=== PATIENT | female | born 1940 | race Caucasian/White ===

== ENCOUNTER 2021-07-25 01:02 | Inpatient (IN) | payer MEDICAID ==
[~2021-07-25] VITALS: Ht 157.5 cm; Wt 66.7 kg
[2021-07-25] MEDS ORDERED: PROPOFOL 10MG/ML 100ML 100 ML IV ONE (01:30)
[2021-07-25] MEDS ORDERED: FENTANYL CITRATE/PF 50MCG/ML 2ML VIAL IV ONE (01:30)
[2021-07-25 01:43] LABS: BASOPHILS % 0.7 % (0.0-2.0); EOSINOPHILS % 10.1 % (0.0-5.0); HEMATOCRIT. 42.6 % (36.0-48.0); HEMOGLOBIN. 13.3 g/dL (12.0-16.0); LYMPHOCYTES % 53.8 % (20.0-50.0); MEAN CORPUSCULAR HEMOGLOBIN 28.5 pg (28.0-32.0); MEAN CORPUSCULAR VOLUME 91.3 fL (81.0-99.0); MONOCYTES % 5.6 % (2.0-8.0); NEUTROPHILS % 29.8 % (40.0-76.0); PLATELET 280 x1000/uL (130-400); RED BLOOD CELL COUNT 4.66 mill/uL (4.2-5.4); RED CELL DISTRIBUTION WIDTH 15.5 % (11.6-14.6)
[2021-07-25 02:25] LABS: BG BASE EXCESS -12.6 mmol/L (-2.0-2.0); BG CARBOXYHEMOGLOBIN 0.3 % (0.5-1.5); BG DEOXYHEMOGLOBIN 0.3 % (0.0-5.0); BG FRACTION INSPIRED OXYGEN 100; BG HCO3 ACT 15.4 mmol/L (22.0-26.0); BG METHEMOGLOBIN 0.5 % (0.0-1.5); BG OXYGEN SATURATION 99.7 % (92.0-98.5); BG OXYHEMOGLOBIN 98.9 % (94.0-97.0); BG PCO2 42.9 mmHg (35.0-45.0); BG PH 7.173 (7.350-7.450); BG PO2 334.6 mmHg (75.0-100.0); BG SAMPLE SITE RIGHT RADIAL; BG TOTAL HEMOGLOBIN 14.4 g/dL (12.0-18.0); BG VENT MODE VENT - AC
[2021-07-25] MEDS ORDERED: DEXAMETHASONE 10 MG/ML VIAL IV NR (02:30)
[2021-07-25] MEDS ORDERED: FUROSEMIDE 40MG/4ML VIAL IVP NR (02:30)
[2021-07-25] MEDS ORDERED: CEFTRIAXONE 1 G PREMIX 50 ML IV NR (02:30)
[2021-07-25] MEDS ORDERED: AZITHROMYCIN 500 MG in DEXT 5% WATER 250 ML IV SCH (02:30)
[2021-07-25] MEDS ORDERED: AZITHROMYCIN 500MG/250ML 250 ML IV NR (03:00)
[2021-07-25 03:20] LABS: CHLORIDE 105 mEq/L (98-107)
[2021-07-25] MEDS ORDERED: MIDAZOLAM HCL 100 MG in DEXT 5% WATER 80 ML IV ONE (03:30)
[2021-07-25] MEDS ORDERED: MIDAZOLAM 100MG/100ML PREMIX IV PRN ×2 (03:45→22:00)
[2021-07-25] MEDS ORDERED: SODIUM CHLORIDE 0.9% 500 ML IV NR (03:45)
[2021-07-25] MEDS ORDERED: NOREPINEPHRINE 8 MG in DEXTROSE 5% WATER 250 ML IV PRN (04:00)
[2021-07-25] MEDS ORDERED: NOREPINEPHRINE 8MG/250ML PMX 250 ML IV SCH (04:00)
[2021-07-25 06:03] LABS: *AMPHETAMINES SCREEN URINE NEGATIVE (NEGATIVE); *BARBITURATES SCREEN URINE NEGATIVE (NEGATIVE); *BENZODIAZEPINES SCREEN URINE NEGATIVE (NEGATIVE); *COCAINE SCREEN URINE NEGATIVE (NEGATIVE)
[2021-07-25 06:04] LABS: CANNABINOID URINE SCREEN NEGATIVE (NEGATIVE); METHADONE URINE SCREEN NEGATIVE (NEGATIVE); OPIATES URINE SCREEN NEGATIVE (NEGATIVE); PHENCYCLIDINE URINE SCREEN NEGATIVE (NEGATIVE)
[2021-07-25] MEDS ORDERED: IOHEXOL-350 100 ML BOTTLE ONE (06:55)
[2021-07-25 07:47] LABS: BG BASE EXCESS -2.3 mmol/L (-2.0-2.0); BG CARBOXYHEMOGLOBIN 0.1 % (0.5-1.5); BG DEOXYHEMOGLOBIN 0.8 % (0.0-5.0); BG HCO3 ACT 19.8 mmol/L (22.0-26.0); BG METHEMOGLOBIN 0.3 % (0.0-1.5); BG OXYGEN SATURATION 99.2 % (92.0-98.5); BG OXYHEMOGLOBIN 98.8 % (94.0-97.0); BG PCO2 26.8 mmHg (35.0-45.0); BG PH 7.486 (7.350-7.450); BG PO2 177.6 mmHg (75.0-100.0); BG SAMPLE SITE RIGHT RADIAL; BG TOTAL HEMOGLOBIN 12.7 g/dL (12.0-18.0); BG VENT MODE VENT - AC
[2021-07-25] MEDS ORDERED: ETOMIDATE 2MG/ML 10ML VIAL IV ONE (08:54)
[2021-07-25] MEDS ORDERED: SUCCINYLCHOLINE CHLORIDE 200MG/10ML IV ONE (08:54)
[2021-07-25] MEDS ORDERED: DOCUSATE SODIUM 100MG CAPSULE PO PRN (12:00)
[2021-07-25] MEDS ORDERED: CLONIDINE 0.1MG TABLET PO PRN (12:00)
[2021-07-25] MEDS ORDERED: NA PHOS,M-B/NA PHOS,DI-BA ENEMA 118ML PR PRN (12:00)
[2021-07-25] MEDS ORDERED: IPRATROPIUM/ALBUTEROL 0.5-3(2.5)MG/3ML NEB NEB PRN (12:00)
[2021-07-25] MEDS ORDERED: LORAZEPAM 2MG/ML CPJ IV PRN (12:00)
[2021-07-25] MEDS ORDERED: NALOXONE HCL 0.4MG/ML VIAL IV PRN (12:00)
[2021-07-25] MEDS ORDERED: HYDROCODONE/ACETAMINOPHEN 5/325MG TABLET PO PRN (12:00)
[2021-07-25] MEDS ORDERED: ENOXAPARIN 30MG/0.3ML SYR SUBCUT SCH (12:00)
[2021-07-25] MEDS ORDERED: MORPHINE SULFATE 2 MG/ML CPJ (NOT FOR IM USE) IV PRN (12:00)
[2021-07-25] MEDS ORDERED: MAGNESIUM/ALUMINUM HYDROXIDE/SIMETHICONE 30ML UDC PO PRN (12:00)
[2021-07-25] MEDS: PIPERACILLIN/TAZOBACTAM 3.375 G in DEXTROSE 5% WATER 50 ML IV SCH ×2 (13:25→20:00)
[2021-07-25] MEDS: DEXT 5%/0.45% NACL 1000ML 1,000 ML IV SCH (13:25)
[2021-07-25 17:16] LABS: CLARITY URINE CLEAR (CLEAR); COLOR URINE YELLOW (YELLOW); KETONES URINE NEGATIVE (NEGATIVE); LEUKOCYTE ESTERASE URINE NEGATIVE (NEGATIVE); NITRITE URINE NEGATIVE (NEGATIVE); OCCULT BLOOD URINE NEGATIVE (NEGATIVE); PH URINE 6.5 (4.5-8.0); PROTEIN URINE NEGATIVE (NEGATIVE); SPECIFIC GRAVITY URINE 1.023 (1.005-1.030); UROBILINOGEN URINE 0.2 E.U./dL (0.2-1.0)
[2021-07-25 17:45] LABS: PHOSPHORUS 2.4 mg/dL (2.5-4.9)
[2021-07-26] VITALS (18 sets, daily range): BP systolic 132–169; BP diastolic 59–90
[2021-07-26 05:22] LABS: CHLORIDE 103 mEq/L (98-107)
[2021-07-26] MEDS: PIPERACILLIN/TAZOBACTAM 3.375 G in DEXTROSE 5% WATER 50 ML IV SCH ×3 (05:44→22:12)
[2021-07-26] MEDS: ASPIRIN 81MG EC TABLET PO SCH (09:00)
[2021-07-26] MEDS: ENOXAPARIN 80MG/0.8ML SYR SUBCUT SCH (11:01)
[2021-07-26 11:07] LABS: PROTHROMBIN TIME 10.6 sec (9.6-11.0)
[2021-07-26 12:27] LABS: BG BASE EXCESS -2.1 mmol/L (-2.0-2.0); BG CARBOXYHEMOGLOBIN 0.3 % (0.5-1.5); BG DEOXYHEMOGLOBIN 0.7 % (0.0-5.0); BG FRACTION INSPIRED OXYGEN 60; BG HCO3 ACT 17.9 mmol/L (22.0-26.0); BG METHEMOGLOBIN 0.3 % (0.0-1.5); BG OXYGEN SATURATION 99.3 % (92.0-98.5); BG OXYHEMOGLOBIN 98.7 % (94.0-97.0); BG PCO2 19.8 mmHg (35.0-45.0); BG PH 7.573 (7.350-7.450); BG PO2 230.3 mmHg (75.0-100.0); BG SAMPLE SITE LEFT RADIAL; BG TOTAL HEMOGLOBIN 12.6 g/dL (12.0-18.0); BG VENT MODE VENT - AC
[2021-07-26] MEDS: DEXT 5%/0.45% NACL 1000ML 1,000 ML IV SCH (15:15)
[2021-07-26] MEDS ORDERED: PROPOFOL 10MG/ML 100ML 100 ML IV PRN (15:45)
[2021-07-26] MEDS ORDERED: IPRATROPIUM/ALBUTEROL 0.5-3(2.5)MG/3ML NEB HHN PRN (15:45)
[2021-07-26] MEDS: DOCUSATE SODIUM SUGAR FREE 100MG/10ML UDC NG SCH (17:33)
[2021-07-26] MEDS: MIDAZOLAM HCL 100 MG in SODIUM CHLORIDE 0.9% 80 ML IV PRN (18:03)
[2021-07-26] MEDS: IPRATROPIUM/ALBUTEROL 0.5-3(2.5)MG/3ML NEB HHN SCH (20:17)
[2021-07-27] VITALS (35 sets, daily range): BP systolic 121–179; BP diastolic 49–94
[2021-07-27] MEDS: IPRATROPIUM/ALBUTEROL 0.5-3(2.5)MG/3ML NEB HHN SCH ×6 (00:09→20:55)
[2021-07-27 05:23] LABS: BASOPHILS % 0.4 % (0.0-2.0); EOSINOPHILS % 0.4 % (0.0-5.0); HEMATOCRIT. 34.3 % (36.0-48.0); HEMOGLOBIN. 11.5 g/dL (12.0-16.0); LYMPHOCYTES % 21.5 % (20.0-50.0); MEAN CORPUSCULAR HEMOGLOBIN 28.8 pg (28.0-32.0); MEAN CORPUSCULAR VOLUME 85.7 fL (81.0-99.0); MEAN PLATELET VOLUME 8.5 fl (7.4-10.4); MONOCYTES % 9.4 % (2.0-8.0); NEUTROPHILS % 68.3 % (40.0-76.0); PLATELET 148 x1000/uL (130-400)
[2021-07-27] MEDS: PIPERACILLIN/TAZOBACTAM 3.375 G in DEXTROSE 5% WATER 50 ML IV SCH ×3 (07:02→21:04)
[2021-07-27 08:53] LABS: BG BASE EXCESS -3.2 mmol/L (-2.0-2.0); BG CARBOXYHEMOGLOBIN 0.3 % (0.5-1.5); BG DEOXYHEMOGLOBIN 1.6 % (0.0-5.0); BG FRACTION INSPIRED OXYGEN 35; BG HCO3 ACT 18.5 mmol/L (22.0-26.0); BG METHEMOGLOBIN 0.3 % (0.0-1.5); BG OXYGEN SATURATION 98.4 % (92.0-98.5); BG OXYHEMOGLOBIN 97.8 % (94.0-97.0); BG PH 7.505 (7.350-7.450); BG PO2 126.6 mmHg (75.0-100.0); BG SAMPLE SITE RIGHT RADIAL; BG TOTAL HEMOGLOBIN 11.1 g/dL (12.0-18.0); BG VENT MODE VENT - AC
[2021-07-27] MEDS: DOCUSATE SODIUM SUGAR FREE 100MG/10ML UDC NG SCH (08:56)
[2021-07-27] MEDS: ENOXAPARIN 80MG/0.8ML SYR SUBCUT SCH (09:14)
[2021-07-27] MEDS: ASPIRIN 81MG EC TABLET PO SCH (09:14)
[2021-07-27] MEDS ORDERED: POTASSIUM CHLORIDE 20MEQ/PACKET PO NR (10:30)
[2021-07-27] MEDS: FENTANYL CITRATE/PF 2,500 MCG in SODIUM CHLORIDE 0.9% 200 ML IV PRN (11:47)
[2021-07-27] MEDS: DEXT 5%/0.45% NACL 1000ML 1,000 ML IV SCH (11:47)
[2021-07-28] VITALS (51 sets, daily range): BP systolic 106–192; BP diastolic 53–102
[2021-07-28] MEDS: MIDAZOLAM HCL 100 MG in SODIUM CHLORIDE 0.9% 80 ML IV PRN (00:27)
[2021-07-28] MEDS: IPRATROPIUM/ALBUTEROL 0.5-3(2.5)MG/3ML NEB HHN SCH ×6 (00:37→20:41)
[2021-07-28 06:12] LABS: BASOPHILS % 0.2 % (0.0-2.0); EOSINOPHILS % 2.4 % (0.0-5.0); HEMATOCRIT. 33.9 % (36.0-48.0); HEMOGLOBIN. 11.4 g/dL (12.0-16.0); LYMPHOCYTES % 11.6 % (20.0-50.0); MEAN CORPUSCULAR HEMOGLOBIN 28.6 pg (28.0-32.0); MEAN CORPUSCULAR VOLUME 84.8 fL (81.0-99.0); MEAN PLATELET VOLUME 9.2 fl (7.4-10.4); MONOCYTES % 6.1 % (2.0-8.0); NEUTROPHILS % 79.7 % (40.0-76.0); PLATELET 188 x1000/uL (130-400); RED CELL DISTRIBUTION WIDTH 14.8 % (11.6-14.6)
[2021-07-28 06:40] LABS: PHOSPHORUS 4.2 mg/dL (2.5-4.9)
[2021-07-28] MEDS: PIPERACILLIN/TAZOBACTAM 3.375 G in DEXTROSE 5% WATER 50 ML IV SCH ×3 (06:51→21:49)
[2021-07-28] MEDS: DOCUSATE SODIUM SUGAR FREE 100MG/10ML UDC NG SCH (09:00)
[2021-07-28 09:09] LABS: BG BASE EXCESS -5.5 mmol/L (-2.0-2.0); BG FRACTION INSPIRED OXYGEN 35; BG HCO3 ACT 18.6 mmol/L (22.0-26.0); BG METHEMOGLOBIN 0.3 % (0.0-1.5); BG OXYHEMOGLOBIN 97.7 % (94.0-97.0); BG PCO2 32.2 mmHg (35.0-45.0); BG PO2 104.4 mmHg (75.0-100.0); BG SAMPLE SITE RIGHT RADIAL; BG TOTAL HEMOGLOBIN 12.8 g/dL (12.0-18.0); BG VENT MODE VENT - AC
[2021-07-28] MEDS: ASPIRIN 81MG EC TABLET PO SCH (09:37)
[2021-07-28] MEDS: ENOXAPARIN 60MG/0.6ML SYR SUBCUT SCH (09:37)
[2021-07-28] MEDS: DEXT 5%/0.45% NACL 1000ML 1,000 ML IV SCH ×2 (12:45→20:45)
[2021-07-28] MEDS: FENTANYL CITRATE/PF 2,500 MCG in SODIUM CHLORIDE 0.9% 200 ML IV PRN (14:19)
[2021-07-29] VITALS (48 sets, daily range): BP systolic 112–184; BP diastolic 54–89
[2021-07-29] MEDS: IPRATROPIUM/ALBUTEROL 0.5-3(2.5)MG/3ML NEB HHN SCH ×5 (00:33→20:38)
[2021-07-29 05:28] LABS: HEMOGLOBIN. 10.8 g/dL (12.0-16.0); MEAN CORPUSCULAR HEMOGLOBIN 28.8 pg (28.0-32.0); MEAN CORPUSCULAR VOLUME 85.1 fL (81.0-99.0); MEAN PLATELET VOLUME 8.7 fl (7.4-10.4); PLATELET 200 x1000/uL (130-400); RED BLOOD CELL COUNT 3.76 mill/uL (4.2-5.4); RED CELL DISTRIBUTION WIDTH 14.8 % (11.6-14.6)
[2021-07-29] MEDS: PIPERACILLIN/TAZOBACTAM 3.375 G in DEXTROSE 5% WATER 50 ML IV SCH ×3 (06:01→21:25)
[2021-07-29 07:47] LABS: PLATELET ESTIMATE NORMAL
[2021-07-29] MEDS: DOCUSATE SODIUM SUGAR FREE 100MG/10ML UDC NG SCH (09:00)
[2021-07-29] MEDS: ENOXAPARIN 60MG/0.6ML SYR SUBCUT SCH (09:15)
[2021-07-29] MEDS: ASPIRIN 81MG EC TABLET PO SCH (09:15)
[2021-07-29 09:38] LABS: BG BASE EXCESS -5.9 mmol/L (-2.0-2.0); BG CARBOXYHEMOGLOBIN 0.3 % (0.5-1.5); BG DEOXYHEMOGLOBIN 7.9 % (0.0-5.0); BG FRACTION INSPIRED OXYGEN 35; BG HCO3 ACT 20.3 mmol/L (22.0-26.0); BG METHEMOGLOBIN 0.3 % (0.0-1.5); BG OXYGEN SATURATION 92.1 % (92.0-98.5); BG OXYHEMOGLOBIN 91.5 % (94.0-97.0); BG PCO2 42.6 mmHg (35.0-45.0); BG PH 7.296 (7.350-7.450); BG PO2 66.7 mmHg (75.0-100.0); BG SAMPLE SITE RH; BG TOTAL HEMOGLOBIN 11.8 g/dL (12.0-18.0); BG TOTAL RESPIRATORY RATE 23 b/min; BG VENT MODE VENT - SIMV
[2021-07-29] MEDS: FENTANYL CITRATE/PF 2,500 MCG in SODIUM CHLORIDE 0.9% 200 ML IV PRN (14:32)
[2021-07-29] MEDS: HYDRALAZINE HCL 50MG TABLET NG SCH ×2 (14:43→21:34)
[2021-07-30] VITALS (47 sets, daily range): BP systolic 113–186; BP diastolic 48–101
[2021-07-30] MEDS: IPRATROPIUM/ALBUTEROL 0.5-3(2.5)MG/3ML NEB HHN SCH ×6 (00:37→20:00)
[2021-07-30] MEDS: PIPERACILLIN/TAZOBACTAM 3.375 G in DEXTROSE 5% WATER 50 ML IV SCH ×3 (05:35→22:00)
[2021-07-30] MEDS: HYDRALAZINE HCL 50MG TABLET NG SCH ×3 (05:35→22:00)
[2021-07-30 08:44] LABS: BG BASE EXCESS -3.3 mmol/L (-2.0-2.0); BG CARBOXYHEMOGLOBIN 0.1 % (0.5-1.5); BG DEOXYHEMOGLOBIN 1.7 % (0.0-5.0); BG HCO3 ACT 20.4 mmol/L (22.0-26.0); BG METHEMOGLOBIN 0.2 % (0.0-1.5); BG OXYGEN SATURATION 98.3 % (92.0-98.5); BG PCO2 32.2 mmHg (35.0-45.0); BG PO2 110.5 mmHg (75.0-100.0); BG SAMPLE SITE RIGHT RADIAL; BG TOTAL HEMOGLOBIN 11.2 g/dL (12.0-18.0); BG VENT MODE VENT - SIMV
[2021-07-30] MEDS: DOCUSATE SODIUM SUGAR FREE 100MG/10ML UDC NG SCH (09:14)
[2021-07-30] MEDS: ASPIRIN 81MG EC TABLET PO SCH (09:14)
[2021-07-30] MEDS: ENOXAPARIN 30MG/0.3ML SYR SUBCUT SCH (09:15)
[2021-07-30] MEDS: FENTANYL CITRATE/PF 2,500 MCG in SODIUM CHLORIDE 0.9% 200 ML IV PRN (14:29)
[2021-07-30] MEDS: ONDANSETRON HCL 4MG/2ML INJ IV PRN (16:52)
[2021-07-31] VITALS (80 sets, daily range): BP systolic 108–171; BP diastolic 53–118
[2021-07-31] MEDS: DIPHENHYDRAMINE 50MG/ML VIAL IV PRN ×3 (00:11→22:11)
[2021-07-31] MEDS: ONDANSETRON HCL 4MG/2ML INJ IV PRN ×3 (00:12→22:10)
[2021-07-31] MEDS: ACETAMINOPHEN 325MG TABLET PO PRN ×2 (00:14→22:10)
[2021-07-31] MEDS: GUAIFENESIN 200MG/10ML SUGAR FREE UDC PO PRN ×3 (00:14→22:10)
[2021-07-31] MEDS: IPRATROPIUM/ALBUTEROL 0.5-3(2.5)MG/3ML NEB HHN SCH ×7 (00:44→23:48)
[2021-07-31] MEDS: FENTANYL CITRATE/PF 2,500 MCG in SODIUM CHLORIDE 0.9% 200 ML IV PRN ×2 (01:51→14:20)
[2021-07-31] MEDS: HYDRALAZINE HCL 50MG TABLET NG SCH ×3 (06:07→22:10)
[2021-07-31 06:12] LABS: BASOPHILS % 0.4 % (0.0-2.0); EOSINOPHILS % 0.5 % (0.0-5.0); HEMATOCRIT. 30.5 % (36.0-48.0); HEMOGLOBIN. 10.2 g/dL (12.0-16.0); LYMPHOCYTES % 13.1 % (20.0-50.0); MEAN CORPUSCULAR HEMOGLOBIN 28.4 pg (28.0-32.0); MEAN CORPUSCULAR VOLUME 84.6 fL (81.0-99.0); MEAN PLATELET VOLUME 8.7 fl (7.4-10.4); MONOCYTES % 9.2 % (2.0-8.0); NEUTROPHILS % 76.8 % (40.0-76.0); PLATELET 257 x1000/uL (130-400); RED BLOOD CELL COUNT 3.61 mill/uL (4.2-5.4); RED CELL DISTRIBUTION WIDTH 14.4 % (11.6-14.6)
[2021-07-31] MEDS: ASPIRIN 81MG EC TABLET PO SCH (08:11)
[2021-07-31] MEDS: DOCUSATE SODIUM SUGAR FREE 100MG/10ML UDC NG SCH (08:11)
[2021-07-31] MEDS: ENOXAPARIN 30MG/0.3ML SYR SUBCUT SCH (08:12)
[2021-07-31 11:10] LABS: BG BASE EXCESS -3.6 mmol/L (-2.0-2.0); BG CARBOXYHEMOGLOBIN 0.2 % (0.5-1.5); BG DEOXYHEMOGLOBIN 3.1 % (0.0-5.0); BG FRACTION INSPIRED OXYGEN 35; BG HCO3 ACT 22.3 mmol/L (22.0-26.0); BG METHEMOGLOBIN 0.3 % (0.0-1.5); BG OXYGEN SATURATION 96.9 % (92.0-98.5); BG OXYHEMOGLOBIN 96.4 % (94.0-97.0); BG PCO2 43.6 mmHg (35.0-45.0); BG PH 7.326 (7.350-7.450); BG PO2 95.8 mmHg (75.0-100.0); BG SAMPLE SITE RIGHT BRACHIAL; BG TOTAL HEMOGLOBIN 11.1 g/dL (12.0-18.0); BG VENT MODE VENT - SIMV
[2021-08-01] VITALS (81 sets, daily range): BP systolic 94–169; BP diastolic 47–104
[2021-08-01] MEDS: IPRATROPIUM/ALBUTEROL 0.5-3(2.5)MG/3ML NEB HHN SCH ×5 (04:01→20:35)
[2021-08-01 04:48] LABS: BASOPHILS % 0.4 % (0.0-2.0); EOSINOPHILS % 0.6 % (0.0-5.0); HEMATOCRIT. 30.5 % (36.0-48.0); HEMOGLOBIN. 10.3 g/dL (12.0-16.0); LYMPHOCYTES % 12.3 % (20.0-50.0); MEAN CORPUSCULAR HEMOGLOBIN 28.8 pg (28.0-32.0); MEAN CORPUSCULAR VOLUME 85.2 fL (81.0-99.0); MEAN PLATELET VOLUME 8.7 fl (7.4-10.4); MONOCYTES % 7.4 % (2.0-8.0); NEUTROPHILS % 79.3 % (40.0-76.0); PLATELET 389 x1000/uL (130-400); RED BLOOD CELL COUNT 3.58 mill/uL (4.2-5.4); RED CELL DISTRIBUTION WIDTH 14.7 % (11.6-14.6)
[2021-08-01 05:03] LABS: PHOSPHORUS 3.4 mg/dL (2.5-4.9)
[2021-08-01] MEDS: HYDRALAZINE HCL 50MG TABLET NG SCH ×3 (05:08→21:33)
[2021-08-01] MEDS: ONDANSETRON HCL 4MG/2ML INJ IV PRN ×2 (05:08→21:32)
[2021-08-01] MEDS: ACETAMINOPHEN 325MG TABLET PO PRN ×2 (05:09→21:32)
[2021-08-01] MEDS: DIPHENHYDRAMINE 50MG/ML VIAL IV PRN ×2 (05:09→21:32)
[2021-08-01] MEDS: FENTANYL CITRATE/PF 2,500 MCG in SODIUM CHLORIDE 0.9% 200 ML IV PRN (06:41)
[2021-08-01] MEDS: DOCUSATE SODIUM SUGAR FREE 100MG/10ML UDC NG SCH (08:02)
[2021-08-01] MEDS: ASPIRIN 81MG EC TABLET PO SCH (08:02)
[2021-08-01] MEDS: ENOXAPARIN 30MG/0.3ML SYR SUBCUT SCH (08:02)
[2021-08-01 09:58] LABS: BG BASE EXCESS -3.2 mmol/L (-2.0-2.0); BG CARBOXYHEMOGLOBIN 0.2 % (0.5-1.5); BG DEOXYHEMOGLOBIN 1.7 % (0.0-5.0); BG FRACTION INSPIRED OXYGEN 35; BG HCO3 ACT 21.6 mmol/L (22.0-26.0); BG METHEMOGLOBIN 0.2 % (0.0-1.5); BG OXYGEN SATURATION 98.3 % (92.0-98.5); BG OXYHEMOGLOBIN 97.9 % (94.0-97.0); BG PCO2 37.5 mmHg (35.0-45.0); BG PH 7.378 (7.350-7.450); BG PO2 117.6 mmHg (75.0-100.0); BG SAMPLE SITE RIGHT RADIAL; BG TOTAL HEMOGLOBIN 9.8 g/dL (12.0-18.0); BG VENT MODE VENT - SIMV
[2021-08-01] MEDS: LORAZEPAM 2MG/ML CPJ IM PRN ×2 (14:31→21:32)
[2021-08-01] MEDS: GUAIFENESIN 200MG/10ML SUGAR FREE UDC PO PRN (21:31)
[2021-08-02] VITALS (72 sets, daily range): BP systolic 79–152; BP diastolic 36–108
[2021-08-02] MEDS: IPRATROPIUM/ALBUTEROL 0.5-3(2.5)MG/3ML NEB HHN SCH ×6 (00:22→21:06)
[2021-08-02] MEDS: HYDRALAZINE HCL 50MG TABLET NG SCH ×3 (05:05→22:00)
[2021-08-02 06:41] LABS: BASOPHILS % 0.4 % (0.0-2.0); HEMOGLOBIN. 9.7 g/dL (12.0-16.0); LYMPHOCYTES % 18.4 % (20.0-50.0); MEAN CORPUSCULAR HEMOGLOBIN 28.3 pg (28.0-32.0); MEAN CORPUSCULAR VOLUME 85.1 fL (81.0-99.0); MEAN PLATELET VOLUME 8.8 fl (7.4-10.4); MONOCYTES % 6.4 % (2.0-8.0); NEUTROPHILS % 73.8 % (40.0-76.0); PLATELET 332 x1000/uL (130-400); RED BLOOD CELL COUNT 3.41 mill/uL (4.2-5.4); RED CELL DISTRIBUTION WIDTH 14.7 % (11.6-14.6)
[2021-08-02] MEDS ORDERED: SODIUM POLYSTYRENE SULFONATE 15 G/60 ML BOT PO SCH (08:15)
[2021-08-02] MEDS: ENOXAPARIN 30MG/0.3ML SYR SUBCUT SCH (08:21)
[2021-08-02] MEDS: DOCUSATE SODIUM SUGAR FREE 100MG/10ML UDC NG SCH (08:21)
[2021-08-02] MEDS: ASPIRIN 81MG EC TABLET PO SCH (08:22)
[2021-08-02] MEDS: LORAZEPAM 2MG/ML CPJ IM PRN (08:22)
[2021-08-02] MEDS ORDERED: BISACODYL 10MG SUPP PR PRN (10:30)
[2021-08-02] MEDS ORDERED: LIDOCAINE HCL 1% 20ML VIAL (Pyxis) INJ ONE (13:28)
[2021-08-02] MEDS: GUAIFENESIN 200MG/10ML SUGAR FREE UDC PO PRN (20:22)
[2021-08-02] MEDS: ACETAMINOPHEN 325MG TABLET PO PRN (20:22)
[2021-08-02] MEDS: DIPHENHYDRAMINE 50MG/ML VIAL IV PRN (20:23)
[2021-08-03] VITALS (45 sets, daily range): BP systolic 76–147; BP diastolic 39–128
[2021-08-03] MEDS: LORAZEPAM 2MG/ML CPJ IM PRN ×2 (03:02→17:49)
[2021-08-03] MEDS: IPRATROPIUM/ALBUTEROL 0.5-3(2.5)MG/3ML NEB HHN SCH ×6 (04:36→20:50)
[2021-08-03 05:28] LABS: BASOPHILS % 0.6 % (0.0-2.0); EOSINOPHILS % 0.5 % (0.0-5.0); HEMATOCRIT. 27.3 % (36.0-48.0); HEMOGLOBIN. 9.2 g/dL (12.0-16.0); LYMPHOCYTES % 15.1 % (20.0-50.0); MEAN CORPUSCULAR HEMOGLOBIN 28.6 pg (28.0-32.0); MEAN CORPUSCULAR VOLUME 85.3 fL (81.0-99.0); NEUTROPHILS % 77.8 % (40.0-76.0); RED CELL DISTRIBUTION WIDTH 14.6 % (11.6-14.6)
[2021-08-03] MEDS: HYDRALAZINE HCL 50MG TABLET NG SCH ×3 (06:00→22:00)
[2021-08-03] MEDS: ENOXAPARIN 30MG/0.3ML SYR SUBCUT SCH (09:39)
[2021-08-03] MEDS: DOCUSATE SODIUM SUGAR FREE 100MG/10ML UDC NG SCH (09:39)
[2021-08-03] MEDS: ASPIRIN 81MG EC TABLET PO SCH (09:39)
[2021-08-03] MEDS: DIPHENHYDRAMINE 50MG/ML VIAL IV PRN ×2 (11:16→15:40)
[2021-08-03] MEDS: ONDANSETRON HCL 4MG/2ML INJ IV PRN (11:16)
[2021-08-03 14:00] LABS: PLATELET 321 x1000/uL (130-400)
[2021-08-03] MEDS: MIDODRINE HCL 5MG TABLET PO SCH ×2 (16:01→17:45)
[2021-08-04] VITALS (37 sets, daily range): BP systolic 68–141; BP diastolic 16–101
[2021-08-04] MEDS: IPRATROPIUM/ALBUTEROL 0.5-3(2.5)MG/3ML NEB HHN SCH ×5 (01:25→20:10)
[2021-08-04] MEDS: HYDRALAZINE HCL 50MG TABLET NG SCH ×3 (06:00→22:00)
[2021-08-04 06:08] LABS: BASOPHILS % 0.9 % (0.0-2.0); EOSINOPHILS % 1.1 % (0.0-5.0); HEMATOCRIT. 27.3 % (36.0-48.0); HEMOGLOBIN. 9.5 g/dL (12.0-16.0); LYMPHOCYTES % 20.7 % (20.0-50.0); MEAN CORPUSCULAR HEMOGLOBIN 29.3 pg (28.0-32.0); MEAN CORPUSCULAR VOLUME 84.5 fL (81.0-99.0); MEAN PLATELET VOLUME 8.7 fl (7.4-10.4); MONOCYTES % 6.4 % (2.0-8.0); NEUTROPHILS % 70.9 % (40.0-76.0); PLATELET 388 x1000/uL (130-400); RED BLOOD CELL COUNT 3.22 mill/uL (4.2-5.4); RED CELL DISTRIBUTION WIDTH 14.6 % (11.6-14.6)
[2021-08-04 06:45] LABS: PHOSPHORUS 2.7 mg/dL (2.5-4.9)
[2021-08-04] MEDS: ENOXAPARIN 30MG/0.3ML SYR SUBCUT SCH (08:21)
[2021-08-04] MEDS: ASPIRIN 81MG EC TABLET PO SCH (08:21)
[2021-08-04] MEDS: MIDODRINE HCL 5MG TABLET PO SCH ×3 (08:22→17:00)
[2021-08-04] MEDS: DOCUSATE SODIUM SUGAR FREE 100MG/10ML UDC NG SCH (08:23)
[2021-08-04 11:26] LABS: BG BASE EXCESS 1.7 mmol/L (-2.0-2.0); BG DEOXYHEMOGLOBIN 2.3 % (0.0-5.0); BG FRACTION INSPIRED OXYGEN 35; BG HCO3 ACT 24.5 mmol/L (22.0-26.0); BG METHEMOGLOBIN 0.3 % (0.0-1.5); BG OXYGEN SATURATION 97.7 % (92.0-98.5); BG OXYHEMOGLOBIN 97.4 % (94.0-97.0); BG PCO2 31.9 mmHg (35.0-45.0); BG PH 7.503 (7.350-7.450); BG PO2 101.3 mmHg (75.0-100.0); BG SAMPLE SITE RIGHT RADIAL; BG TOTAL HEMOGLOBIN 10.7 g/dL (12.0-18.0); BG TOTAL RESPIRATORY RATE 9 b/min; BG VENT MODE VENT - SIMV
[2021-08-04] MEDS: ONDANSETRON HCL 4MG/2ML INJ IV PRN (12:30)
[2021-08-04 13:43] LABS: BG CARBOXYHEMOGLOBIN 0.3 % (0.5-1.5); BG DEOXYHEMOGLOBIN 5.5 % (0.0-5.0); BG FRACTION INSPIRED OXYGEN 35; BG HCO3 ACT 22.3 mmol/L (22.0-26.0); BG METHEMOGLOBIN 0.3 % (0.0-1.5); BG OXYGEN SATURATION 94.5 % (92.0-98.5); BG OXYHEMOGLOBIN 93.9 % (94.0-97.0); BG PCO2 32.4 mmHg (35.0-45.0); BG PH 7.456 (7.350-7.450); BG PO2 74.4 mmHg (75.0-100.0); BG SAMPLE SITE RIGHT BRACHIAL; BG TOTAL HEMOGLOBIN 11.2 g/dL (12.0-18.0); BG VENT MODE VENT - CPAP
[2021-08-04] MEDS: GUAIFENESIN 200MG/10ML SUGAR FREE UDC PO PRN (22:46)
[2021-08-04] MEDS: DIPHENHYDRAMINE 50MG/ML VIAL IV PRN (22:46)
[2021-08-04] MEDS: ACETAMINOPHEN 325MG TABLET PO PRN (22:46)
[2021-08-05] VITALS (58 sets, daily range): BP systolic 71–121; BP diastolic 42–79
[2021-08-05] MEDS: IPRATROPIUM/ALBUTEROL 0.5-3(2.5)MG/3ML NEB HHN SCH ×6 (00:14→21:30)
[2021-08-05] MEDS: HYDRALAZINE HCL 50MG TABLET NG SCH ×3 (05:36→22:00)
[2021-08-05 06:02] LABS: BASOPHILS % 0.6 % (0.0-2.0); EOSINOPHILS % 0.5 % (0.0-5.0); HEMATOCRIT. 29.4 % (36.0-48.0); HEMOGLOBIN. 10.1 g/dL (12.0-16.0); LYMPHOCYTES % 15.7 % (20.0-50.0); MEAN CORPUSCULAR HEMOGLOBIN 29.9 pg (28.0-32.0); MEAN CORPUSCULAR VOLUME 86.9 fL (81.0-99.0); MEAN PLATELET VOLUME 8.6 fl (7.4-10.4); MONOCYTES % 6.2 % (2.0-8.0); RED BLOOD CELL COUNT 3.38 mill/uL (4.2-5.4); RED CELL DISTRIBUTION WIDTH 15.2 % (11.6-14.6)
[2021-08-05 06:09] LABS: PLATELET 422 x1000/uL (130-400)
[2021-08-05] MEDS: ENOXAPARIN 30MG/0.3ML SYR SUBCUT SCH (08:57)
[2021-08-05] MEDS: MIDODRINE HCL 5MG TABLET PO SCH ×3 (08:57→18:30)
[2021-08-05] MEDS: DOCUSATE SODIUM SUGAR FREE 100MG/10ML UDC NG SCH (08:57)
[2021-08-05] MEDS: ASPIRIN 81MG EC TABLET PO SCH (08:57)
[2021-08-05] MEDS ORDERED: SODIUM CHLORIDE 0.9% 500 ML IV ONE (11:00)
[2021-08-05] MEDS: NOREPINEPHRINE 32 MG in DEXT 5% WATER 218 ML IV PRN (13:53)
[2021-08-05 17:54] LABS: CLARITY URINE CLOUDY (CLEAR); COLOR URINE YELLOW (YELLOW); KETONES URINE 1+ (NEGATIVE); LEUKOCYTE ESTERASE URINE NEGATIVE (NEGATIVE); NITRITE URINE NEGATIVE (NEGATIVE); OCCULT BLOOD URINE 2+ (NEGATIVE); PH URINE 5.5 (4.5-8.0); PROTEIN URINE TRACE (NEGATIVE); SPECIFIC GRAVITY URINE 1.023 (1.005-1.030)
[2021-08-06] VITALS (18 sets, daily range): BP systolic 95–121; BP diastolic 56–96
[2021-08-06] MEDS: IPRATROPIUM/ALBUTEROL 0.5-3(2.5)MG/3ML NEB HHN SCH ×5 (00:41→20:24)
[2021-08-06] MEDS: HYDRALAZINE HCL 50MG TABLET NG SCH ×3 (05:09→22:00)
[2021-08-06 06:11] LABS: EOSINOPHILS % 0.4 % (0.0-5.0); HEMATOCRIT. 33.5 % (36.0-48.0); HEMOGLOBIN. 10.7 g/dL (12.0-16.0); LYMPHOCYTES % 14.3 % (20.0-50.0); MEAN CORPUSCULAR HEMOGLOBIN 27.5 pg (28.0-32.0); MEAN CORPUSCULAR VOLUME 86.4 fL (81.0-99.0); MEAN PLATELET VOLUME 8.3 fl (7.4-10.4); MONOCYTES % 7.9 % (2.0-8.0); NEUTROPHILS % 76.4 % (40.0-76.0); PLATELET 572 x1000/uL (130-400); RED BLOOD CELL COUNT 3.87 mill/uL (4.2-5.4); RED CELL DISTRIBUTION WIDTH 15.4 % (11.6-14.6)
[2021-08-06] MEDS: ENOXAPARIN 30MG/0.3ML SYR SUBCUT SCH (09:41)
[2021-08-06] MEDS: MIDODRINE HCL 5MG TABLET PO SCH ×3 (09:42→17:16)
[2021-08-06] MEDS: DOCUSATE SODIUM SUGAR FREE 100MG/10ML UDC NG SCH (09:43)
[2021-08-06] MEDS: ASPIRIN 81MG EC TABLET PO SCH (09:44)
[2021-08-06] MEDS: CEFEPIME 2,000 MG in DEXT 5% WATER 100 ML IV SCH (16:00)
[2021-08-07] VITALS (61 sets, daily range): BP systolic 79–141; BP diastolic 32–107
[2021-08-07] MEDS: IPRATROPIUM/ALBUTEROL 0.5-3(2.5)MG/3ML NEB HHN SCH ×5 (04:17→20:10)
[2021-08-07 05:05] LABS: BASOPHILS % 0.7 % (0.0-2.0); EOSINOPHILS % 0.7 % (0.0-5.0); HEMATOCRIT. 34.4 % (36.0-48.0); HEMOGLOBIN. 10.6 g/dL (12.0-16.0); LYMPHOCYTES % 17.3 % (20.0-50.0); MEAN CORPUSCULAR HEMOGLOBIN 27.1 pg (28.0-32.0); MEAN CORPUSCULAR VOLUME 87.5 fL (81.0-99.0); MEAN PLATELET VOLUME 8.3 fl (7.4-10.4); MONOCYTES % 5.6 % (2.0-8.0); NEUTROPHILS % 75.7 % (40.0-76.0); PLATELET 618 x1000/uL (130-400); RED BLOOD CELL COUNT 3.92 mill/uL (4.2-5.4); RED CELL DISTRIBUTION WIDTH 16.1 % (11.6-14.6)
[2021-08-07] MEDS: HYDRALAZINE HCL 50MG TABLET NG SCH ×3 (05:58→22:00)
[2021-08-07] MEDS: CEFEPIME 2,000 MG in DEXT 5% WATER 100 ML IV SCH ×2 (05:59→17:35)
[2021-08-07] MEDS: NOREPINEPHRINE 32 MG in DEXT 5% WATER 218 ML IV PRN (06:36)
[2021-08-07] MEDS: DOCUSATE SODIUM SUGAR FREE 100MG/10ML UDC NG SCH (09:00)
[2021-08-07] MEDS: ASPIRIN 81MG EC TABLET PO SCH (09:00)
[2021-08-07] MEDS: MIDODRINE HCL 5MG TABLET PO SCH ×3 (09:08→17:35)
[2021-08-07] MEDS: ENOXAPARIN 30MG/0.3ML SYR SUBCUT SCH (09:13)
[2021-08-07] MEDS ORDERED: FLUCONAZOLE 150MG TABLET PO NR (15:00)
[2021-08-08] VITALS (101 sets, daily range): BP systolic 61–149; BP diastolic 17–109
[2021-08-08] MEDS: IPRATROPIUM/ALBUTEROL 0.5-3(2.5)MG/3ML NEB HHN SCH ×6 (00:55→20:41)
[2021-08-08] MEDS: HYDRALAZINE HCL 50MG TABLET NG SCH ×3 (06:00→22:00)
[2021-08-08] MEDS: CEFEPIME 2,000 MG in DEXT 5% WATER 100 ML IV SCH ×2 (06:02→16:40)
[2021-08-08 08:59] LABS: BG CARBOXYHEMOGLOBIN 0.3 % (0.5-1.5); BG DEOXYHEMOGLOBIN 3.8 % (0.0-5.0); BG HCO3 ACT 16.1 mmol/L (22.0-26.0); BG METHEMOGLOBIN 0.3 % (0.0-1.5); BG OXYGEN SATURATION 96.2 % (92.0-98.5); BG OXYHEMOGLOBIN 95.6 % (94.0-97.0); BG PCO2 25.7 mmHg (35.0-45.0); BG PH 7.416 (7.350-7.450); BG PO2 88.8 mmHg (75.0-100.0); BG SAMPLE SITE RIGHT RADIAL; BG TOTAL HEMOGLOBIN 11.1 g/dL (12.0-18.0); BG VENT MODE MASK - BIPAP
[2021-08-08] MEDS: DOCUSATE SODIUM SUGAR FREE 100MG/10ML UDC NG SCH (09:39)
[2021-08-08] MEDS: ASPIRIN 81MG EC TABLET PO SCH (09:39)
[2021-08-08] MEDS: ENOXAPARIN 40MG/0.4ML SYR SUBCUT SCH (09:40)
[2021-08-08] MEDS: MIDODRINE HCL 5MG TABLET PO SCH ×3 (09:40→16:39)
[2021-08-08] MEDS: PHENYLEPHRINE 100 MG in DEXT 5% WATER 240 ML IV PRN (10:51)
[2021-08-08 11:07] LABS: HEMATOCRIT. 31.4 % (36.0-48.0); HEMOGLOBIN. 10.4 g/dL (12.0-16.0); MEAN CORPUSCULAR HEMOGLOBIN 28.8 pg (28.0-32.0); MEAN CORPUSCULAR VOLUME 87.6 fL (81.0-99.0); MEAN PLATELET VOLUME 7.9 fl (7.4-10.4); PLATELET 401 x1000/uL (130-400); RED BLOOD CELL COUNT 3.59 mill/uL (4.2-5.4); RED CELL DISTRIBUTION WIDTH 15.9 % (11.6-14.6)
[2021-08-08 11:29] LABS: PLATELET ESTIMATE NORMAL
[2021-08-08] MEDS: LORAZEPAM 2MG/ML CPJ IV PRN (15:02)
[2021-08-09] VITALS (97 sets, daily range): BP systolic 63–140; BP diastolic 16–101
[2021-08-09] MEDS: LORAZEPAM 2MG/ML CPJ IV PRN
[2021-08-09] MEDS: IPRATROPIUM/ALBUTEROL 0.5-3(2.5)MG/3ML NEB HHN SCH ×6 (00:47→20:30)
[2021-08-09 05:21] LABS: BASOPHILS % 0.5 % (0.0-2.0); EOSINOPHILS % 0.1 % (0.0-5.0); HEMATOCRIT. 32.9 % (36.0-48.0); HEMOGLOBIN. 10.6 g/dL (12.0-16.0); LYMPHOCYTES % 17.7 % (20.0-50.0); MEAN CORPUSCULAR HEMOGLOBIN 28.4 pg (28.0-32.0); MEAN PLATELET VOLUME 8.5 fl (7.4-10.4); MONOCYTES % 8.6 % (2.0-8.0); NEUTROPHILS % 73.1 % (40.0-76.0); PLATELET 539 x1000/uL (130-400); RED BLOOD CELL COUNT 3.74 mill/uL (4.2-5.4); RED CELL DISTRIBUTION WIDTH 16.3 % (11.6-14.6)
[2021-08-09] MEDS: CEFEPIME 2,000 MG in DEXT 5% WATER 100 ML IV SCH ×2 (05:47→17:17)
[2021-08-09] MEDS: HYDRALAZINE HCL 50MG TABLET NG SCH ×3 (06:00→20:55)
[2021-08-09] MEDS: DOCUSATE SODIUM SUGAR FREE 100MG/10ML UDC NG SCH (08:49)
[2021-08-09] MEDS: ASPIRIN 81MG EC TABLET PO SCH (08:50)
[2021-08-09] MEDS: MIDODRINE HCL 5MG TABLET PO SCH ×3 (08:50→17:18)
[2021-08-09] MEDS: ENOXAPARIN 40MG/0.4ML SYR SUBCUT SCH (08:51)
[2021-08-10] VITALS (96 sets, daily range): BP systolic 76–126; BP diastolic 15–89
[2021-08-10] MEDS: IPRATROPIUM/ALBUTEROL 0.5-3(2.5)MG/3ML NEB HHN SCH ×6 (00:30→19:43)
[2021-08-10] MEDS: PHENYLEPHRINE 100 MG in DEXT 5% WATER 240 ML IV PRN (03:42)
[2021-08-10] MEDS: CEFEPIME 2,000 MG in DEXT 5% WATER 100 ML IV SCH ×2 (05:40→18:24)
[2021-08-10] MEDS: HYDRALAZINE HCL 50MG TABLET NG SCH ×3 (06:00→22:00)
[2021-08-10 07:09] LABS: BASOPHILS % 0.4 % (0.0-2.0); EOSINOPHILS % 0.8 % (0.0-5.0); HEMATOCRIT. 31.5 % (36.0-48.0); HEMOGLOBIN. 10.5 g/dL (12.0-16.0); LYMPHOCYTES % 13.3 % (20.0-50.0); MEAN CORPUSCULAR HEMOGLOBIN 29.6 pg (28.0-32.0); MEAN CORPUSCULAR VOLUME 88.8 fL (81.0-99.0); MEAN PLATELET VOLUME 9.1 fl (7.4-10.4); MONOCYTES % 8.3 % (2.0-8.0); NEUTROPHILS % 77.2 % (40.0-76.0); PLATELET 391 x1000/uL (130-400); RED BLOOD CELL COUNT 3.55 mill/uL (4.2-5.4); RED CELL DISTRIBUTION WIDTH 16.5 % (11.6-14.6)
[2021-08-10] MEDS: FUROSEMIDE 40MG/4ML VIAL IVP SCH (09:00)
[2021-08-10] MEDS: ASPIRIN 81MG EC TABLET PO SCH (09:00)
[2021-08-10] MEDS: DOCUSATE SODIUM SUGAR FREE 100MG/10ML UDC NG SCH (09:00)
[2021-08-10] MEDS: MIDODRINE HCL 5MG TABLET PO SCH ×3 (09:01→18:24)
[2021-08-10] MEDS: ENOXAPARIN 40MG/0.4ML SYR SUBCUT SCH (09:01)
[2021-08-10] MEDS: LORAZEPAM 2MG/ML CPJ IV PRN (09:45)
[2021-08-10] MEDS: ONDANSETRON HCL 4MG/2ML INJ IV PRN ×2 (13:32→19:27)
[2021-08-11] VITALS (76 sets, daily range): BP systolic 83–117; BP diastolic 40–78
[2021-08-11] MEDS: IPRATROPIUM/ALBUTEROL 0.5-3(2.5)MG/3ML NEB HHN SCH ×5 (03:21→20:48)
[2021-08-11] MEDS: HYDRALAZINE HCL 50MG TABLET NG SCH ×3 (05:07→17:43)
[2021-08-11] MEDS: CEFEPIME 2,000 MG in DEXT 5% WATER 100 ML IV SCH ×2 (06:15→17:12)
[2021-08-11] MEDS: ONDANSETRON HCL 4MG/2ML INJ IV PRN ×2 (08:31→17:12)
[2021-08-11] MEDS: FUROSEMIDE 40MG/4ML VIAL IVP SCH (08:31)
[2021-08-11] MEDS: MULTIVITAMINS,THER W-MINERALS TABLET PO SCH (08:31)
[2021-08-11] MEDS: DOCUSATE SODIUM SUGAR FREE 100MG/10ML UDC NG SCH (08:31)
[2021-08-11] MEDS: ASPIRIN 81MG EC TABLET PO SCH (08:32)
[2021-08-11] MEDS: MIDODRINE HCL 5MG TABLET PO SCH ×3 (08:32→16:09)
[2021-08-11] MEDS: ENOXAPARIN 40MG/0.4ML SYR SUBCUT SCH (08:35)
[2021-08-11] MEDS ORDERED: LACTULOSE 20G/30ML UDC PO NR (08:45)
[2021-08-11] MEDS ORDERED: LACTULOSE 20G/30ML UDC PO SCH (14:45)
[2021-08-11] MEDS ORDERED: LACTULOSE 20G/30ML UDC PO PRN (21:00)
[2021-08-12] VITALS (12 sets, daily range): BP systolic 92–106; BP diastolic 58–74
[2021-08-12] MEDS: IPRATROPIUM/ALBUTEROL 0.5-3(2.5)MG/3ML NEB HHN SCH ×6 (00:12→20:52)
[2021-08-12 06:31] LABS: BASOPHILS % 0.2 % (0.0-2.0); EOSINOPHILS % 1.2 % (0.0-5.0); HEMATOCRIT. 30.4 % (36.0-48.0); HEMOGLOBIN. 10.1 g/dL (12.0-16.0); MEAN CORPUSCULAR VOLUME 87.5 fL (81.0-99.0); MEAN PLATELET VOLUME 8.9 fl (7.4-10.4); MONOCYTES % 8.1 % (2.0-8.0); NEUTROPHILS % 76.5 % (40.0-76.0); PLATELET 392 x1000/uL (130-400); RED BLOOD CELL COUNT 3.47 mill/uL (4.2-5.4); RED CELL DISTRIBUTION WIDTH 16.6 % (11.6-14.6)
[2021-08-12] MEDS: ASPIRIN 81MG EC TABLET PO SCH (09:11)
[2021-08-12] MEDS: MULTIVITAMINS,THER W-MINERALS TABLET PO SCH (09:11)
[2021-08-12] MEDS: ENOXAPARIN 30MG/0.3ML SYR SUBCUT SCH (09:11)
[2021-08-12] MEDS: DOCUSATE SODIUM SUGAR FREE 100MG/10ML UDC NG SCH (09:11)
[2021-08-12] MEDS: MIDODRINE HCL 5MG TABLET PO SCH ×3 (09:12→18:32)
[2021-08-13] VITALS (11 sets, daily range): BP systolic 99–123; BP diastolic 26–75
[2021-08-13] MEDS: IPRATROPIUM/ALBUTEROL 0.5-3(2.5)MG/3ML NEB HHN SCH ×5 (01:18→21:25)
[2021-08-13] MEDS: ENOXAPARIN 30MG/0.3ML SYR SUBCUT SCH (08:44)
[2021-08-13] MEDS: MULTIVITAMINS,THER W-MINERALS TABLET PO SCH (08:44)
[2021-08-13] MEDS: DOCUSATE SODIUM SUGAR FREE 100MG/10ML UDC NG SCH (08:44)
[2021-08-13] MEDS: ASPIRIN 81MG EC TABLET PO SCH (08:45)
[2021-08-13] MEDS: MIDODRINE HCL 5MG TABLET PO SCH ×3 (08:45→18:48)
[2021-08-13] MEDS: DIPHENHYDRAMINE 50MG/ML VIAL IV PRN (13:20)
[2021-08-14] VITALS (8 sets, daily range): BP systolic 94–110; BP diastolic 58–70
[2021-08-14] MEDS: IPRATROPIUM/ALBUTEROL 0.5-3(2.5)MG/3ML NEB HHN SCH ×5 (01:40→21:38)
[2021-08-14] MEDS: DOCUSATE SODIUM SUGAR FREE 100MG/10ML UDC NG SCH (09:37)
[2021-08-14] MEDS: MULTIVITAMINS,THER W-MINERALS TABLET PO SCH (09:37)
[2021-08-14] MEDS: ENOXAPARIN 30MG/0.3ML SYR SUBCUT SCH (09:38)
[2021-08-14] MEDS: MIDODRINE HCL 5MG TABLET PO SCH ×3 (09:38→18:05)
[2021-08-14] MEDS: ASPIRIN 81MG EC TABLET PO SCH (09:38)
[2021-08-14 11:36] LABS: BASOPHILS % 0.7 % (0.0-2.0); EOSINOPHILS % 1.4 % (0.0-5.0); HEMATOCRIT. 34.4 % (36.0-48.0); LYMPHOCYTES % 13.9 % (20.0-50.0); MEAN CORPUSCULAR HEMOGLOBIN 28.5 pg (28.0-32.0); MEAN CORPUSCULAR VOLUME 89.3 fL (81.0-99.0); MEAN PLATELET VOLUME 9.3 fl (7.4-10.4); MONOCYTES % 8.6 % (2.0-8.0); NEUTROPHILS % 75.4 % (40.0-76.0); PLATELET 333 x1000/uL (130-400); RED BLOOD CELL COUNT 3.85 mill/uL (4.2-5.4); RED CELL DISTRIBUTION WIDTH 18.8 % (11.6-14.6)
[2021-08-15] VITALS: BP 101/57
[2021-08-15 04:00] VITALS: BP 109/62
[2021-08-15] MEDS: IPRATROPIUM/ALBUTEROL 0.5-3(2.5)MG/3ML NEB HHN SCH ×6 (04:09→21:00)
[2021-08-15 08:30] VITALS: BP 106/49
[2021-08-15] MEDS: ASPIRIN 81MG EC TABLET PO SCH (09:15)
[2021-08-15] MEDS: DOCUSATE SODIUM SUGAR FREE 100MG/10ML UDC NG SCH (09:15)
[2021-08-15] MEDS: MULTIVITAMINS,THER W-MINERALS TABLET PO SCH (09:15)
[2021-08-15] MEDS: MIDODRINE HCL 5MG TABLET PO SCH ×3 (09:16→18:00)
[2021-08-15] MEDS: ENOXAPARIN 30MG/0.3ML SYR SUBCUT SCH (09:17)
[2021-08-15 12:00] VITALS: BP 119/62
[2021-08-15 16:00] VITALS: BP 110/59
[2021-08-15 20:00] VITALS: BP 132/64
[2021-08-15] MEDS: ACETAMINOPHEN 325MG TABLET PO PRN (22:25)
[2021-08-16] VITALS: BP 100/54
[2021-08-16] MEDS: IPRATROPIUM/ALBUTEROL 0.5-3(2.5)MG/3ML NEB HHN SCH ×6 (00:29→21:15)
[2021-08-16 04:00] VITALS: BP 127/70
[2021-08-16 08:00] VITALS: BP 94/60
[2021-08-16] MEDS: ONDANSETRON HCL 4MG/2ML INJ IV PRN (10:38)
[2021-08-16] MEDS: MULTIVITAMINS,THER W-MINERALS TABLET PO SCH (10:39)
[2021-08-16] MEDS: DOCUSATE SODIUM SUGAR FREE 100MG/10ML UDC NG SCH (10:39)
[2021-08-16] MEDS: ENOXAPARIN 30MG/0.3ML SYR SUBCUT SCH (10:39)
[2021-08-16] MEDS: ASPIRIN 81MG EC TABLET PO SCH (10:40)
[2021-08-16] MEDS: MIDODRINE HCL 5MG TABLET PO SCH ×3 (10:41→18:43)
[2021-08-16 12:00] VITALS: BP 97/6
[2021-08-16 16:00] VITALS: BP 111/73
[2021-08-16 20:00] VITALS: BP 107/69
[2021-08-17] VITALS: BP 120/72
[2021-08-17] MEDS: IPRATROPIUM/ALBUTEROL 0.5-3(2.5)MG/3ML NEB HHN SCH ×4 (00:38→17:33)
[2021-08-17 04:00] VITALS: BP 102/64
[2021-08-17 07:01] LABS: BASOPHILS % 0.4 % (0.0-2.0); EOSINOPHILS % 0.2 % (0.0-5.0); HEMATOCRIT. 34.5 % (36.0-48.0); MEAN CORPUSCULAR HEMOGLOBIN 28.7 pg (28.0-32.0); MEAN CORPUSCULAR VOLUME 90.1 fL (81.0-99.0); MEAN PLATELET VOLUME 9.6 fl (7.4-10.4); MONOCYTES % 7.7 % (2.0-8.0); NEUTROPHILS % 71.7 % (40.0-76.0); PLATELET 304 x1000/uL (130-400); RED BLOOD CELL COUNT 3.83 mill/uL (4.2-5.4); RED CELL DISTRIBUTION WIDTH 18.6 % (11.6-14.6)
[2021-08-17 08:06] VITALS: BP_SYST 106; BP_SYST 90; BP_DIAS 64; BP_DIAS 71
[2021-08-17] MEDS: DOCUSATE SODIUM SUGAR FREE 100MG/10ML UDC NG SCH (09:48)
[2021-08-17] MEDS: ENOXAPARIN 30MG/0.3ML SYR SUBCUT SCH (09:51)
[2021-08-17] MEDS: ACETAMINOPHEN 325MG TABLET PO PRN (09:52)
[2021-08-17] MEDS: MIDODRINE HCL 5MG TABLET PO SCH ×3 (09:52→17:31)
[2021-08-17] MEDS: ASPIRIN 81MG EC TABLET PO SCH (09:52)
[2021-08-17] MEDS: MULTIVITAMINS,THER W-MINERALS TABLET PO SCH (09:54)
[2021-08-17 12:25] VITALS: BP_SYST 137; BP_SYST 90; BP_DIAS 60; BP_DIAS 78
[2021-08-17] MEDS ORDERED: NALOXONE HCL 0.4MG/ML VIAL IV PRN (13:30)
[2021-08-17] MEDS ORDERED: POLYETHYLENE GLYCOL 3350 (17GM) 1 DOSE PACK PO NR (13:30)
[2021-08-17] MEDS: HYDROCODONE/ACETAMINOPHEN 5/325MG TABLET PO PRN ×2 (14:09→22:06)
[2021-08-17 16:00] VITALS: BP 114/69
[2021-08-17 20:00] VITALS: BP 117/72
[2021-08-17] MEDS: GUAIFENESIN 200MG/10ML SUGAR FREE UDC PO PRN (22:05)
[2021-08-18] VITALS: BP 101/67
[2021-08-18] MEDS: IPRATROPIUM/ALBUTEROL 0.5-3(2.5)MG/3ML NEB HHN SCH ×6 (00:25→20:57)
[2021-08-18 04:00] VITALS: BP 100/61
[2021-08-18 08:00] VITALS: BP 113/75
[2021-08-18] MEDS: ASPIRIN 81MG EC TABLET PO SCH (10:16)
[2021-08-18] MEDS: ENOXAPARIN 30MG/0.3ML SYR SUBCUT SCH (10:16)
[2021-08-18] MEDS: MIDODRINE HCL 5MG TABLET PO SCH ×3 (10:17→17:50)
[2021-08-18] MEDS: MULTIVITAMINS,THER W-MINERALS TABLET PO SCH (10:17)
[2021-08-18] MEDS: DOCUSATE SODIUM SUGAR FREE 100MG/10ML UDC NG SCH (10:19)
[2021-08-18 12:00] VITALS: BP 99/62
[2021-08-18 16:00] VITALS: BP 104/69
[2021-08-18 20:00] VITALS: BP 108/76
[2021-08-18] MEDS: ONDANSETRON HCL 4MG/2ML INJ IV PRN (20:12)
[2021-08-19] VITALS (7 sets, daily range): BP systolic 95–107; BP diastolic 48–78
[2021-08-19] MEDS: IPRATROPIUM/ALBUTEROL 0.5-3(2.5)MG/3ML NEB HHN SCH ×7 (00:26→23:49)
[2021-08-19] MEDS: ENOXAPARIN 30MG/0.3ML SYR SUBCUT SCH (08:48)
[2021-08-19] MEDS: DOCUSATE SODIUM SUGAR FREE 100MG/10ML UDC NG SCH ×2 (08:48→08:57)
[2021-08-19] MEDS: ASPIRIN 81MG EC TABLET PO SCH ×2 (08:49→08:57)
[2021-08-19] MEDS: MIDODRINE HCL 5MG TABLET PO SCH ×4 (08:49→17:03)
[2021-08-19] MEDS: MULTIVITAMINS,THER W-MINERALS TABLET PO SCH ×2 (08:49→08:57)
[2021-08-19] MEDS ORDERED: FUROSEMIDE 20MG/2ML VIAL IVP NR (11:15)
[2021-08-19 11:47] LABS: BG BASE EXCESS -7.1 mmol/L (-2.0-2.0); BG CARBOXYHEMOGLOBIN 0.6 % (0.5-1.5); BG DEOXYHEMOGLOBIN 28.2 % (0.0-5.0); BG METHEMOGLOBIN 0.5 % (0.0-1.5); BG OXYGEN SATURATION 71.5 % (92.0-98.5); BG OXYHEMOGLOBIN 70.7 % (94.0-97.0); BG PCO2 30.5 mmHg (35.0-45.0); BG PH 7.365 (7.350-7.450); BG PO2 43.5 mmHg (75.0-100.0); BG SAMPLE SITE RIGHT BRACHIAL; BG TOTAL HEMOGLOBIN 12.6 g/dL (12.0-18.0); BG VENT MODE ROOM AIR
[2021-08-19 12:52] LABS: HEMATOCRIT. 34.3 % (36.0-48.0); HEMOGLOBIN. 10.7 g/dL (12.0-16.0); MEAN CORPUSCULAR HEMOGLOBIN 28.3 pg (28.0-32.0); MEAN CORPUSCULAR VOLUME 90.1 fL (81.0-99.0); MEAN PLATELET VOLUME 9.8 fl (7.4-10.4); PLATELET 268 x1000/uL (130-400); RED CELL DISTRIBUTION WIDTH 19.3 % (11.6-14.6)
[2021-08-19 21:10] LABS: PLATELET ESTIMATE NORMAL
[2021-08-19] MEDS: ACETAMINOPHEN 325MG TABLET PO PRN (22:05)
[2021-08-20 03:49] VITALS: BP 107/77
[2021-08-20] MEDS: IPRATROPIUM/ALBUTEROL 0.5-3(2.5)MG/3ML NEB HHN SCH ×4 (03:59→21:10)
[2021-08-20 08:00] VITALS: BP 91/56
[2021-08-20] MEDS: ENOXAPARIN 30MG/0.3ML SYR SUBCUT SCH (08:25)
[2021-08-20] MEDS: MULTIVITAMINS,THER W-MINERALS TABLET PO SCH (08:25)
[2021-08-20] MEDS: MIDODRINE HCL 5MG TABLET PO SCH ×3 (08:26→17:45)
[2021-08-20] MEDS: ASPIRIN 81MG EC TABLET PO SCH (08:26)
[2021-08-20] MEDS: DOCUSATE SODIUM SUGAR FREE 100MG/10ML UDC NG SCH (08:29)
[2021-08-20 09:38] LABS: BASOPHILS % 0.4 % (0.0-2.0); EOSINOPHILS % 0.3 % (0.0-5.0); HEMATOCRIT. 34.2 % (36.0-48.0); HEMOGLOBIN. 10.7 g/dL (12.0-16.0); LYMPHOCYTES % 10.6 % (20.0-50.0); MEAN CORPUSCULAR HEMOGLOBIN 28.2 pg (28.0-32.0); MEAN CORPUSCULAR VOLUME 90.5 fL (81.0-99.0); MEAN PLATELET VOLUME 9.8 fl (7.4-10.4); MONOCYTES % 4.8 % (2.0-8.0); NEUTROPHILS % 83.9 % (40.0-76.0); PLATELET 224 x1000/uL (130-400); RED BLOOD CELL COUNT 3.78 mill/uL (4.2-5.4); RED CELL DISTRIBUTION WIDTH 18.6 % (11.6-14.6)
[2021-08-20] MEDS ORDERED: FUROSEMIDE 40MG/4ML VIAL IVP ONE (11:15)
[2021-08-20 12:00] VITALS: BP 99/57
[2021-08-20] MEDS ORDERED: FUROSEMIDE 20MG TABLET PO NR (13:00)
[2021-08-20 16:00] VITALS: BP 102/65
[2021-08-20 20:00] VITALS: BP 95/61
[2021-08-20 23:51] VITALS: BP 106/70
[2021-08-21] MEDS: IPRATROPIUM/ALBUTEROL 0.5-3(2.5)MG/3ML NEB HHN SCH ×5 (02:00→21:40)
[2021-08-21 07:29] LABS: BASOPHILS % 0.1 % (0.0-2.0); HEMATOCRIT. 34.4 % (36.0-48.0); HEMOGLOBIN. 10.8 g/dL (12.0-16.0); MEAN CORPUSCULAR HEMOGLOBIN 28.6 pg (28.0-32.0); MEAN CORPUSCULAR VOLUME 90.9 fL (81.0-99.0); MEAN PLATELET VOLUME 10.1 fl (7.4-10.4); MONOCYTES % 4.1 % (2.0-8.0); NEUTROPHILS % 84.8 % (40.0-76.0); PLATELET 212 x1000/uL (130-400); RED BLOOD CELL COUNT 3.78 mill/uL (4.2-5.4); RED CELL DISTRIBUTION WIDTH 19.6 % (11.6-14.6)
[2021-08-21 08:00] VITALS: BP 96/63
[2021-08-21] MEDS: ENOXAPARIN 30MG/0.3ML SYR SUBCUT SCH (09:02)
[2021-08-21] MEDS: MIDODRINE HCL 5MG TABLET PO SCH ×3 (09:02→19:28)
[2021-08-21] MEDS: DOCUSATE SODIUM SUGAR FREE 100MG/10ML UDC NG SCH (09:02)
[2021-08-21] MEDS: ASPIRIN 81MG EC TABLET PO SCH (09:03)
[2021-08-21] MEDS: MULTIVITAMINS,THER W-MINERALS TABLET PO SCH (09:03)
[2021-08-21 12:00] VITALS: BP 93/56
[2021-08-21 16:00] VITALS: BP 97/61
[2021-08-21 20:00] VITALS: BP 103/63
[2021-08-22] VITALS: BP 98/65
[2021-08-22] MEDS: ACETAMINOPHEN 325MG TABLET PO PRN (00:16)
[2021-08-22] MEDS: IPRATROPIUM/ALBUTEROL 0.5-3(2.5)MG/3ML NEB HHN SCH ×6 (00:26→21:40)
[2021-08-22 04:00] VITALS: BP 100/64
[2021-08-22 07:57] LABS: BASOPHILS % 0.1 % (0.0-2.0); HEMATOCRIT. 34.7 % (36.0-48.0); HEMOGLOBIN. 10.8 g/dL (12.0-16.0); LYMPHOCYTES % 13.7 % (20.0-50.0); MEAN CORPUSCULAR HEMOGLOBIN 28.2 pg (28.0-32.0); MEAN CORPUSCULAR VOLUME 90.6 fL (81.0-99.0); MEAN PLATELET VOLUME 10.1 fl (7.4-10.4); MONOCYTES % 4.6 % (2.0-8.0); NEUTROPHILS % 81.6 % (40.0-76.0); PLATELET 191 x1000/uL (130-400); RED BLOOD CELL COUNT 3.83 mill/uL (4.2-5.4); RED CELL DISTRIBUTION WIDTH 18.9 % (11.6-14.6)
[2021-08-22 08:00] VITALS: BP 96/63
[2021-08-22] MEDS: DOCUSATE SODIUM SUGAR FREE 100MG/10ML UDC NG SCH (09:34)
[2021-08-22] MEDS: MULTIVITAMINS,THER W-MINERALS TABLET PO SCH (09:35)
[2021-08-22] MEDS: ENOXAPARIN 30MG/0.3ML SYR SUBCUT SCH (09:35)
[2021-08-22] MEDS: ASPIRIN 81MG EC TABLET PO SCH (09:35)
[2021-08-22] MEDS: MIDODRINE HCL 5MG TABLET PO SCH ×3 (09:35→17:12)
[2021-08-22 12:00] VITALS: BP 98/65
[2021-08-22 16:00] VITALS: BP 101/62
[2021-08-22] MEDS ORDERED: NALOXONE HCL 0.4MG/ML VIAL IV PRN (19:00)
[2021-08-22] MEDS: MORPHINE SULFATE 2 MG/ML CPJ (NOT FOR IM USE) IV PRN (19:08)
[2021-08-22 20:00] VITALS: BP 107/61
[2021-08-22] MEDS ORDERED: HYDR-4009 PO (23:41)
[2021-08-23] VITALS: BP 100/69
[2021-08-23] MEDS: IPRATROPIUM/ALBUTEROL 0.5-3(2.5)MG/3ML NEB HHN SCH ×5 (01:08→15:40)
[2021-08-23 07:04] LABS: BASOPHILS % 0.1 % (0.0-2.0); HEMATOCRIT. 38.4 % (36.0-48.0); HEMOGLOBIN. 11.8 g/dL (12.0-16.0); LYMPHOCYTES % 10.4 % (20.0-50.0); MEAN CORPUSCULAR HEMOGLOBIN 27.9 pg (28.0-32.0); MEAN CORPUSCULAR VOLUME 90.4 fL (81.0-99.0); NEUTROPHILS % 84.5 % (40.0-76.0); PLATELET 206 x1000/uL (130-400); RED BLOOD CELL COUNT 4.25 mill/uL (4.2-5.4); RED CELL DISTRIBUTION WIDTH 19.4 % (11.6-14.6)
[2021-08-23 08:00] VITALS: BP 112/70
[2021-08-23] MEDS: DEXTROSE 5% WATER 1,000 ML IV SCH (08:30)
[2021-08-23] MEDS: ASPIRIN 81MG EC TABLET PO SCH (09:33)
[2021-08-23] MEDS: MIDODRINE HCL 5MG TABLET PO SCH ×3 (09:33→16:49)
[2021-08-23] MEDS: MULTIVITAMINS,THER W-MINERALS TABLET PO SCH (09:33)
[2021-08-23] MEDS: ENOXAPARIN 30MG/0.3ML SYR SUBCUT SCH (09:34)
[2021-08-23] MEDS: DOCUSATE SODIUM SUGAR FREE 100MG/10ML UDC NG SCH (09:34)
[2021-08-23] MEDS ORDERED: SODIUM POLYSTYRENE SULFONATE 15 G/60 ML BOT PO NR (10:00)
[2021-08-23 12:00] VITALS: BP 103/75
[2021-08-23 16:00] VITALS: BP 93/53
[2021-08-23 20:00] VITALS: BP 98/68
[2021-08-24] VITALS: BP 102/54
[2021-08-24] MEDS: DEXTROSE 5% WATER 1,000 ML IV SCH ×2 (01:10→16:18)
[2021-08-24 04:00] VITALS: BP 104/67
[2021-08-24 07:30] LABS: HEMATOCRIT. 36.9 % (36.0-48.0); HEMOGLOBIN. 11.3 g/dL (12.0-16.0); MEAN CORPUSCULAR HEMOGLOBIN 27.7 pg (28.0-32.0); MEAN CORPUSCULAR VOLUME 90.4 fL (81.0-99.0); MEAN PLATELET VOLUME 10.1 fl (7.4-10.4); PLATELET 173 x1000/uL (130-400); RED BLOOD CELL COUNT 4.08 mill/uL (4.2-5.4); RED CELL DISTRIBUTION WIDTH 19.7 % (11.6-14.6)
[2021-08-24 08:00] VITALS: BP 112/67
[2021-08-24] MEDS: MULTIVITAMINS,THER W-MINERALS TABLET PO SCH (08:25)
[2021-08-24] MEDS: ENOXAPARIN 30MG/0.3ML SYR SUBCUT SCH (08:26)
[2021-08-24] MEDS: MIDODRINE HCL 5MG TABLET PO SCH ×3 (08:26→17:20)
[2021-08-24 12:00] VITALS: BP 121/68
[2021-08-24] MEDS: MORPHINE SULFATE 2 MG/ML CPJ (NOT FOR IM USE) IV PRN (14:07)
[2021-08-24 16:00] VITALS: BP 117/70
[2021-08-24 20:00] VITALS: BP 101/67
[2021-08-24 20:10] LABS: NUCLEATED RED BLOOD CELLS 4 /100 WBC; PLATELET ESTIMATE NORMAL
[2021-08-25] VITALS: BP 95/61
[2021-08-25 04:00] VITALS: BP 104/68
[2021-08-25] MEDS: DEXTROSE 5% WATER 1,000 ML IV SCH ×2 (04:29→22:14)
[2021-08-25 08:00] VITALS: BP 129/71
[2021-08-25] MEDS: ASPIRIN 81MG TABLET PO SCH (09:08)
[2021-08-25] MEDS: ENOXAPARIN 30MG/0.3ML SYR SUBCUT SCH (09:08)
[2021-08-25] MEDS: MULTIVITAMINS,THER W-MINERALS TABLET PO SCH (09:08)
[2021-08-25] MEDS: MIDODRINE HCL 5MG TABLET PO SCH ×3 (09:09→18:00)
[2021-08-25 12:00] VITALS: BP 106/70
[2021-08-25] MEDS: ONDANSETRON HCL 4MG/2ML INJ IV PRN (14:31)
[2021-08-25] MEDS: IPRATROPIUM/ALBUTEROL 0.5-3(2.5)MG/3ML NEB HHN PRN (15:21)
[2021-08-25 16:00] VITALS: BP 116/69
[2021-08-25] MEDS ORDERED: IPRATROPIUM/ALBUTEROL 0.5-3(2.5)MG/3ML NEB HHN SCH (16:00)
[2021-08-25] MEDS: GUAIFENESIN 200MG/10ML SUGAR FREE UDC PO PRN (18:00)
[2021-08-25 20:00] VITALS: BP 95/57
[2021-08-26] VITALS: BP 98/67
[2021-08-26 04:00] VITALS: BP 104/75
[2021-08-26] MEDS: GUAIFENESIN 200MG/10ML SUGAR FREE UDC PO PRN ×2 (06:50→22:41)
[2021-08-26 06:59] LABS: EOSINOPHILS % 0.1 % (0.0-5.0); HEMATOCRIT. 37.2 % (36.0-48.0); HEMOGLOBIN. 11.7 g/dL (12.0-16.0); LYMPHOCYTES % 11.3 % (20.0-50.0); MEAN CORPUSCULAR HEMOGLOBIN 28.2 pg (28.0-32.0); MEAN CORPUSCULAR VOLUME 89.4 fL (81.0-99.0); MEAN PLATELET VOLUME 10.1 fl (7.4-10.4); MONOCYTES % 4.9 % (2.0-8.0); NEUTROPHILS % 83.7 % (40.0-76.0); PLATELET 138 x1000/uL (130-400); RED BLOOD CELL COUNT 4.17 mill/uL (4.2-5.4); RED CELL DISTRIBUTION WIDTH 19.3 % (11.6-14.6)
[2021-08-26 08:00] VITALS: BP 93/61
[2021-08-26] MEDS: MULTIVITAMINS,THER W-MINERALS TABLET PO SCH (09:23)
[2021-08-26] MEDS: DEXTROSE 5% WATER 1,000 ML IV SCH ×2 (09:23→22:50)
[2021-08-26] MEDS: ASPIRIN 81MG TABLET PO SCH (09:23)
[2021-08-26] MEDS: MIDODRINE HCL 5MG TABLET PO SCH ×3 (09:24→18:22)
[2021-08-26] MEDS: ENOXAPARIN 30MG/0.3ML SYR SUBCUT SCH (09:25)
[2021-08-26] MEDS ORDERED: POTASSIUM CHLORIDE 20MEQ/PACKET PO NR (10:00)
[2021-08-26 12:00] VITALS: BP 94/64
[2021-08-26] MEDS: BENZONATATE 100MG CAPSULE PO SCH ×2 (14:38→21:12)
[2021-08-26 16:00] VITALS: BP 101/63
[2021-08-26 20:00] VITALS: BP 99/63
[2021-08-26] MEDS: IPRATROPIUM/ALBUTEROL 0.5-3(2.5)MG/3ML NEB HHN PRN (21:31)
[2021-08-26] MEDS: MORPHINE SULFATE 2 MG/ML CPJ (NOT FOR IM USE) IV PRN (22:41)
[2021-08-27] VITALS (7 sets, daily range): BP systolic 72–104; BP diastolic 34–65
[2021-08-27] MEDS: BENZONATATE 100MG CAPSULE PO SCH ×3 (05:39→21:48)
[2021-08-27 07:28] LABS: BASOPHILS % 0.5 % (0.0-2.0); EOSINOPHILS % 0.2 % (0.0-5.0); HEMATOCRIT. 35.2 % (36.0-48.0); HEMOGLOBIN. 11.2 g/dL (12.0-16.0); LYMPHOCYTES % 11.9 % (20.0-50.0); MEAN CORPUSCULAR HEMOGLOBIN 28.2 pg (28.0-32.0); MEAN CORPUSCULAR VOLUME 88.6 fL (81.0-99.0); MEAN PLATELET VOLUME 10.6 fl (7.4-10.4); MONOCYTES % 5.9 % (2.0-8.0); NEUTROPHILS % 81.5 % (40.0-76.0); PLATELET 132 x1000/uL (130-400); RED BLOOD CELL COUNT 3.97 mill/uL (4.2-5.4); RED CELL DISTRIBUTION WIDTH 19.1 % (11.6-14.6)
[2021-08-27 08:03] LABS: PHOSPHORUS 4.3 mg/dL (2.5-4.9)
[2021-08-27] MEDS: ASPIRIN 81MG TABLET PO SCH (09:04)
[2021-08-27] MEDS: MIDODRINE HCL 5MG TABLET PO SCH ×3 (09:05→16:42)
[2021-08-27] MEDS: MULTIVITAMINS,THER W-MINERALS TABLET PO SCH (09:05)
[2021-08-27] MEDS: ENOXAPARIN 30MG/0.3ML SYR SUBCUT SCH (09:05)
[2021-08-27] MEDS: DEXTROSE 5% WATER 1,000 ML IV SCH (14:31)
[2021-08-27] MEDS: ONDANSETRON HCL 4MG/2ML INJ IV PRN (17:02)
[2021-08-28] VITALS: BP 162/72
[2021-08-28 04:00] VITALS: BP 96/58
[2021-08-28] MEDS: BENZONATATE 100MG CAPSULE PO SCH ×3 (06:00→21:11)
[2021-08-28 08:00] VITALS: BP 96/55
[2021-08-28] MEDS: ASPIRIN 81MG TABLET PO SCH (08:37)
[2021-08-28] MEDS: MIDODRINE HCL 5MG TABLET PO SCH ×3 (08:37→17:35)
[2021-08-28] MEDS: MULTIVITAMINS,THER W-MINERALS TABLET PO SCH (08:37)
[2021-08-28] MEDS: ENOXAPARIN 30MG/0.3ML SYR SUBCUT SCH (08:39)
[2021-08-28 12:00] VITALS: BP 131/72
[2021-08-28] MEDS: DEXTROSE 5% WATER 1,000 ML IV SCH ×3 (13:15→14:36)
[2021-08-28] MEDS: GUAIFENESIN 200MG/10ML SUGAR FREE UDC PO PRN ×2 (13:15→17:38)
[2021-08-28 16:00] VITALS: BP 92/63
[2021-08-28 20:00] VITALS: BP 117/66
[2021-08-29] VITALS: BP 115/96
[2021-08-29] MEDS: DEXTROSE 5% WATER 1,000 ML IV SCH (03:20)
[2021-08-29 04:00] VITALS: BP 125/82
[2021-08-29] MEDS: BENZONATATE 100MG CAPSULE PO SCH ×3 (05:22→21:29)
[2021-08-29] MEDS: IPRATROPIUM/ALBUTEROL 0.5-3(2.5)MG/3ML NEB HHN PRN ×4 (05:47→22:32)
[2021-08-29 08:04] VITALS: BP 161/137
[2021-08-29] MEDS: MULTIVITAMINS,THER W-MINERALS TABLET PO SCH ×2 (08:51→09:00)
[2021-08-29] MEDS: ASPIRIN 81MG TABLET PO SCH ×2 (08:51→09:00)
[2021-08-29] MEDS: GUAIFENESIN 200MG/10ML SUGAR FREE UDC PO PRN (08:51)
[2021-08-29] MEDS: ENOXAPARIN 30MG/0.3ML SYR SUBCUT SCH (08:52)
[2021-08-29] MEDS: MIDODRINE HCL 5MG TABLET PO SCH ×3 (08:53→13:00)
[2021-08-29 12:00] VITALS: BP 98/65
[2021-08-29 13:02] LABS: BASOPHILS % 0.1 % (0.0-2.0); EOSINOPHILS % 0.3 % (0.0-5.0); HEMATOCRIT. 38.4 % (36.0-48.0); HEMOGLOBIN. 11.8 g/dL (12.0-16.0); LYMPHOCYTES % 12.5 % (20.0-50.0); MEAN CORPUSCULAR HEMOGLOBIN 27.7 pg (28.0-32.0); MEAN CORPUSCULAR VOLUME 90.1 fL (81.0-99.0); MEAN PLATELET VOLUME 10.6 fl (7.4-10.4); MONOCYTES % 7.3 % (2.0-8.0); NEUTROPHILS % 79.8 % (40.0-76.0); PLATELET 138 x1000/uL (130-400); RED BLOOD CELL COUNT 4.26 mill/uL (4.2-5.4); RED CELL DISTRIBUTION WIDTH 19.5 % (11.6-14.6)
[2021-08-29 16:00] VITALS: BP 154/91
[2021-08-29 20:00] VITALS: BP 103/82
[2021-08-30] VITALS: BP 99/74
[2021-08-30 04:00] VITALS: BP 113/66
[2021-08-30] MEDS: BENZONATATE 100MG CAPSULE PO SCH (06:00)
[2021-08-30 07:19] LABS: BASOPHILS % 0.1 % (0.0-2.0); EOSINOPHILS % 0.1 % (0.0-5.0); HEMATOCRIT. 38.1 % (36.0-48.0); HEMOGLOBIN. 11.7 g/dL (12.0-16.0); LYMPHOCYTES % 9.2 % (20.0-50.0); MEAN CORPUSCULAR HEMOGLOBIN 27.2 pg (28.0-32.0); MEAN CORPUSCULAR VOLUME 88.7 fL (81.0-99.0); MONOCYTES % 5.3 % (2.0-8.0); NEUTROPHILS % 85.3 % (40.0-76.0); PLATELET 146 x1000/uL (130-400); RED CELL DISTRIBUTION WIDTH 19.2 % (11.6-14.6)
[2021-08-30 07:41] LABS: CHLORIDE 102 mEq/L (98-107)
[2021-08-30 08:00] VITALS: BP 158/126
[2021-08-30] MEDS ORDERED: CALCIUM CHLORIDE 1GM/10ML SYR IV ONE (08:05)
[2021-08-30] MEDS ORDERED: EPINEPHRINE 0.1MG/ML (1:10,000) 10ML SYR ONE (08:05)
[2021-08-30] MEDS ORDERED: SODIUM BICARBONATE 8.4% 1 MEQ/ML 50ML SYR IV ONE (08:05)
[2021-08-30] MEDS: MULTIVITAMINS,THER W-MINERALS TABLET PO SCH (09:00)
[2021-08-30] MEDS: ASPIRIN 81MG TABLET PO SCH (09:00)
[2021-08-30] MEDS: MIDODRINE HCL 5MG TABLET PO SCH (09:00)
[2021-08-30] MEDS: ENOXAPARIN 30MG/0.3ML SYR SUBCUT SCH (09:56)
[2021-08-30] MEDS ORDERED: HYDRALAZINE 20MG/ML VIAL IV PRN ×2 (10:45→14:15)
[2021-08-30] MEDS ORDERED: DEXT 5%/0.45% NACL 1000ML 1,000 ML IV SCH (11:00)
[2021-08-30] MEDS ORDERED: HYDRALAZINE 10 MG in SODIUM CHLORIDE 0.9% 49.5 ML IV PRN (11:00)
[2021-08-30] MEDS ORDERED: FUROSEMIDE 20MG/2ML VIAL IVP SCH (12:15)
== END 2021-08-30 17:00 | DRG 720 ==
LOC: ER 01:02 → MICUSO 04:11 → 7WST 07-26 12:20 → MICUSO 07-27 23:15 → 5EST 08-11 19:07 → 6WST 08-14 06:00 → 6EST 08-22 14:20 → MICUNO 08-30 14:09
PROVIDERS: ADMIT Internal Medicine; ATTEND Internal Medicine
PROC: 5A1955Z Respiratory Ventilation, Greater than 96 Consecutive Hours (ICD-10-PCS; principal; 2021-07-25)
PROC: 0BH17EZ Insertion of Endotracheal Airway into Trachea, Via Natural or Artificial Opening (ICD-10-PCS; 2021-07-25)
PROC: 02HV33Z Insertion of Infusion Device into Superior Vena Cava, Percutaneous Approach (ICD-10-PCS; 2021-08-02)
PROC: B548ZZA Ultrasonography of Superior Vena Cava, Guidance (ICD-10-PCS; 2021-08-02)
PROC: 5A09457 Assistance with Respiratory Ventilation, 24-96 Consecutive Hours, Continuous Positive Airway Pressure (ICD-10-PCS; 2021-08-08)
PROC: 5A12012 Performance of Cardiac Output, Single, Manual (ICD-10-PCS; 2021-08-30)
PROC: 0BH17EZ Insertion of Endotracheal Airway into Trachea, Via Natural or Artificial Opening (ICD-10-PCS; 2021-08-30)
DX: A41.89 Other specified sepsis (principal); J96.01 Acute respiratory failure with hypoxia; J12.82 Pneumonia due to coronavirus disease 2019; N17.0 Acute kidney failure with tubular necrosis; E44.0 Moderate protein-calorie malnutrition; U07.1 COVID-19; R65.21 Severe sepsis with septic shock; G93.41 Metabolic encephalopathy; I21.4 Non-ST elevation (NSTEMI) myocardial infarction; E87.1 Hypo-osmolality and hyponatremia; E87.2 Acidosis; I11.0 Hypertensive heart disease with heart failure; I25.10 Atherosclerotic heart disease of native coronary artery without angina pectoris; I50.9 Heart failure, unspecified; K59.00 Constipation, unspecified; R73.9 Hyperglycemia, unspecified; I46.9 Cardiac arrest, cause unspecified; B37.49 Other urogenital candidiasis; Z68.26 Body mass index [BMI] 26.0-26.9, adult
CPT/HCPCS: 36415; 36600; 71045; 71275; 74018; 76770; 76937; 80048; 80053; 80305; 81003; 82375; 82805; 82962; 83605; 83735; 83880; 84100; 84145; 84478; 84484; 85025; 85379; 87070; 87426; 92610; 92950; 93005; 93306; 93970; 93971; 94002; 94003; 94640; 94660; 97110; 97162; 97166; 97530; 97535; 99291; A6261; C1725; J0330; J0456; J0692; J0696; J1100; J1200; J1650; J1940; J2060; J2250; J2270; J2370; J2405; J2543; J2704; J3010; J3490; J7040; J7042; J7050; J7060; J7070; Q9967; A4315